=== PATIENT | female | born 1980 | race Native Hawaiian/Other Pacific Islander ===

== ENCOUNTER 2016-11-16 16:38 | Observation (INO) | payer SELFPAY ==
[2016-11-16 16:58] VITALS: BP 133/75; RESP 24; TEMP 98.5; O2SAT 99
[2016-11-16] MEDS ORDERED: Alum-Mag Hydrox-Simethicone Susp (30 mL) PO ONE (17:18)
[2016-11-16] MEDS ORDERED: Sodium Chloride 0.9% 1,000 ML IV STA (17:18)
[2016-11-16] MEDS ORDERED: Alum-Mag Hydrox-Simethicone Susp (30 mL) ONE (17:24)
--- NOTE | 2016-11-16 18:04 | ED PDOC ---
HPI: General Adult Time Seen by Provider: 11/16/16 16:57 Chief Complaint (Nursing): Chest Pain History Per: Patient Additional Complaint(s): Pt. states on after she ate she developed epigastric pain and nausea and vomiting. Reports symptoms continued and worsened and today pain began to radiate up into her chest and into her L shoulder. States symptoms worsen after eating. Denies fever, hematemesis, SOB, LUNA, leg pain, palpitations, hormonal therapy, hx of DVT/PE. Past Medical History Reviewed: Historical Data, Nursing Documentation, Vital Signs Vital Signs: Last Vital Signs Temp 98.5 F 11/16/16 16:56 Pulse 57 L 11/16/16 19:58 Resp 24 11/16/16 16:56 BP 133/75 11/16/16 16:56 Pulse Ox 99 11/16/16 23:47 - Medical History PMH: No Chronic Diseases - Surgical History Surgical History: No Surg Hx - Family History Family History: States: [place] (father of [place] at 42 y/o; grand father of [place] at 44) - Home Medications Home Medications: Ambulatory Orders Medication Instructions Recorded Famotidine [Pepcid] 20 mg PO BID #30 tab 11/16/16 - Allergies Allergies/Adverse Reactions: Allergies Allergy/AdvReac Type Severity Reaction Status Date / Time No Known Allergies Allergy Verified 11/16/16 16:50 Review of Systems ROS Statement: Except As Marked, All Systems Reviewed And Found Negative Cardiovascular: Positive for: Chest Pain Gastrointestinal: Positive for: Nausea, Vomiting, Abdominal Pain Physical Exam - Reviewed Nursing Documentation Reviewed: Yes Vital Signs Reviewed: Yes - Physical Exam Appears: Positive for: Well, Non-toxic, No Acute Distress Head Exam: Positive for: ATRAUMATIC, NORMAL INSPECTION, NORMOCEPHALIC Skin: Positive for: Normal Color, Warm. Negative for: Rash Eye Exam: Positive for: Normal appearance, EOMI, PERRL. Negative for: Periorbital swelling, Periorbital tenderness ENT: Positive for: Normal ENT Inspection Neck: Positive for: Normal, Painless ROM Cardiovascular/Chest: Positive for: Regular Rate, Rhythm, Chest Non Tender Respiratory: Positive for: CNT, Normal Breath Sounds Gastrointestinal/Abdominal: Positive for: Normal Exam, Bowel Sounds, Soft, Tenderness (minimal epigastric tenderness). Negative for: Mass Back: Positive for: Normal Inspection. Negative for: L CVA Tenderness, R CVA Tenderness Extremity: Positive for: Normal ROM Neurologic/Psych: Positive for: Alert, Oriented. Negative for: Aphasia, Facial Droop - Laboratory Results Result Diagrams: 11/16/16 19:20 11/16/16 20:09 - ECG ECG: Positive for: Interpreted By Me ECG Rhythm: Positive for: Sinus Bradycardia. Negative for: ST/T Changes Rate: 57 O2 Sat by Pulse Oximetry: 99 - Radiology X-Ray: Interpreted by Me (CXR) X-Ray Interpretation: No Acute Disease - Progress ED Course And Treament: Labs ordered. Pepcid 20mg IV, zofran 4mg IV, maalox 30ml PO, viscous lidocaine 15ml PO ordered. ED OBSERVATION Date of observation admission: 11/16/16 Time of observation admission: 19:33 - Observation admission statement Patient is being placed in observation because:: abdominal pain - Progress Note Progress Note: 11/16/16 19:33 On re-evaluation, pt. reports that pain initially resolved but has since returned. Morphine 2mg IV, abd US ordered. 11/16/16 19:20 Case d/w Dr. Guardado and recommends repeat troponin 3 hours after initial troponin. 11/16/16 19:55 CMP and 1st troponin were hemolyzed. CMP and 1st troponin redrawn. Repeat troponin in 3 hours ordered. Disposition - Clinical Impression Clinical Impression: Chest pain, Abdominal pain - Patient ED Disposition Is Patient to be Admitted: Transfer of Care (Signed out to Lenin ROWLEY pending lab/US results and final disposition.) - Disposition Disposition Time: 20:00 Condition: IMPROVED
[2016-11-16 19:27] LABS: BASO # 0.1 K/uL (0.0-0.2); BASO % 0.9 % (0.0-2.0); EOS % 0.4 % (0.0-4.0); HEMATOCRIT 40.4 % (34.0-47.0); LYMPH # 2.9 K/uL (1.0-4.3); LYMPH % 33.3 % (20.0-40.0); MEAN CELL VOLUME 87.7 fl (81.0-99.0); MEAN CORPUSCULAR HEMOGLOBIN 29.4 pg (27.0-31.0); MEAN CORPUSCULAR HGB CONC 33.5 g/dL (33.0-37.0); MEAN PLATELET VOLUME 9.1 fl (7.2-11.7); MONO # 0.8 K/uL (0.0-0.8); MONO % 9.5 % (0.0-10.0); NEUT # 4.8 K/uL (1.8-7.0); NEUT % 55.9 % (50.0-75.0); NRBC % 0.2 % (0.0-0.0); RED CELL DISTRIBUTION WIDTH 14.8 % (11.5-14.5); WHITE BLOOD COUNT 8.6 K/uL (4.8-10.8)
[2016-11-16 19:36] VITALS: PULSE 57
[2016-11-16 20:24] LABS: ALB/GLOB RATIO 1.3 (1.0-2.1); ALKALINE PHOSPHATASE 50 U/L (38-126); ALT/SGPT 27 U/L (9-52); AST/SGOT 22 U/L (14-36); BILIRUBIN,TOTAL 0.5 mg/dl (0.2-1.3); BLOOD UREA NITROGEN 5 mg/dl (7-17); CARBON DIOXIDE 23 mmol/L (22-30); CHLORIDE 101 mmol/L (98-107); GFR AFRICAN-AMERICAN > 60; GLUCOSE,RANDOM 106 mg/dL (65-105); POTASSIUM 3.6 MMOL/L (3.6-5.0); SODIUM 136 mmol/l (132-148); TOTAL PROTEIN 7.5 G/DL (6.3-8.2)
--- NOTE | 2016-11-16 21:06 | US ---
EXAM: US Abdomen Complete EXAM DATE/TIME: 11/16/2016 7:27 PM CLINICAL HISTORY: 35 years old, female; Pain; Abdominal pain; Epigastric; Additional info: Epigastric pain TECHNIQUE: Real-time ultrasound of the abdomen (complete) with image documentation. COMPARISON: No relevant prior studies available. FINDINGS: Gallbladder: Within normal limits in appearance, without evidence of gallstones, significant gallbladder wall thickening, or pericholecystic fluid. Reportedly negative sonographic Beckman's sign. Common bile duct: Does not appear abnormally dilated, measuring less than 6 mm in diameter. Liver: Within normal limits in appearance. Measures 13.6 cm in length. Normal flow seen in the main portal vein on color and Doppler imaging. Pancreas: Imaged portions appear unremarkable. Tail is obscured by gas. Right kidney: At the lower limits of normal in size, measuring 9.1 cm in length. Contains an anechoic, round lesion, measuring 1.5 cm maximally. This is somewhat poorly evaluated on this exam, but it most likely represents a cyst. It has an echogenic focus near its posterior wall, suspicious for a small calcification. Left kidney: At the lower limits of normal in size, measuring 9.2 cm in length. Otherwise within normal limits in appearance. No evidence of hydronephrosis. Spleen: Within normal limits in appearance. Measures 7 cm in length. Aorta: Imaged portions appear unremarkable. IVC: Imaged portions appear unremarkable. IMPRESSION: No evidence of acute cholecystitis or other significant acute abnormality. Incidental 1.5 cm right renal lesion, suspicious for a mildly complex cyst, containing a small calcification. Recommend further evaluation with renal protocol CT, not necessarily on an emergent basis. See above for remaining findings.
--- NOTE | 2016-11-16 23:46 | ED PDOC ---
- Laboratory Results Result Diagrams: 11/16/16 19:20 11/16/16 20:09 - ECG O2 Sat by Pulse Oximetry: 99 - Progress ED Course And Treament: Case endorsed to card writer hand from Miguel Ángel ROWLEY pending labs/repeat trop 21:30 Patient resting comfortably, states pain improved 23:00 Patient resting comfortably 23:45 Repeat trop neg. Patient educated on findings, discharged with rx Pepcid. Advised follow up PMD 2-3 days. Diet modification. Return to ED for worsening/concerning symptoms. Disposition - Clinical Impression Clinical Impression: Chest pain, Abdominal pain - POA Present On Arrival: None - Disposition Disposition: Routine/Home Disposition Time: 23:46 Condition: IMPROVED
--- NOTE | 2016-11-17 11:06 | RAD ---
HISTORY: chest pain COMPARISON: No prior. TECHNIQUE: Chest PA and lateral FINDINGS: LUNGS: No active pulmonary disease. PLEURA: No significant pleural effusion identified. No pneumothorax apparent. CARDIOVASCULAR: Normal. OSSEOUS STRUCTURES: No significant abnormalities. VISUALIZED UPPER ABDOMEN: Normal. OTHER FINDINGS: None. IMPRESSION: No acute cardiopulmonary disease appreciated.
--- NOTE | 2016-11-17 23:42 | CARD ---
APPROVED REPORT EKG Measurement Heart [id number] <Conclusion> Sinus bradycardia Otherwise normal ECG
== END 2016-11-16 23:48 | disposition home or self-care (01) ==
LOC: H.ER 16:38 → H.EROBSV 19:32
PROVIDERS: ADMIT Emergency Medicine; ATTEND Emergency Medicine
DX: R07.9 Chest pain, unspecified (principal); R11.2 Nausea with vomiting, unspecified; R10.13 Epigastric pain
CPT/HCPCS: 36415; 71020; 76700; 80053; 81025; 84484; 85025; 93005; 96374; 96375; 99283; G0378; G0480; J2270; J2405; J7040